=== PATIENT | female | born 1990 | race Caucasian/White ===

== ENCOUNTER 2020-02-06 20:20 | Observation (INO) ==
[2020-02-06 20:37] VITALS: BP 146/70
[2020-02-06] MEDS ORDERED: FLU Vac QV 20-21 (6Month+)/PF 0.5 ML SYRINGE IM ONE (20:38)
[2020-02-06 21:03] LABS: Basophils % 0.3 %; Eosinophils # 0.1 K/mcL (0.0-0.6); Eosinophils % 0.9 %; Hematocrit 38.1 % (35.3-44.9); Hemoglobin 13.2 g/dL (11.5-15.4); Immature Granulocytes % 0.5 % (0-4); Lymphocytes # 2.7 K/mcL (0.6-4.6); Lymphocytes % 26.6 %; Mean Corpuscular HGB Conc 34.6 g/dL (31.6-35.5); Mean Corpuscular Hemoglobin 30.8 pg (28.0-33.3); Mean Corpuscular Volume 88.8 fL (83.0-100.0); Mean Platelet Volume 10.2 fL (9.4-12.4); Monocytes # 0.6 K/mcL (0.0-1.3); Monocytes % 5.6 %; Neutrophils # 6.6 K/mcL (1.6-8.9); Platelet Count 257 K/mcL (140-400); Red Blood Count 4.29 M/mcL (3.82-4.97); Red Cell Distribution Width 12.5 % (11.5-14.5); Segmented Neutrophils % 66.1 %
[2020-02-06 21:08] LABS: Protein/Creatinine Ratio,Urine 0.12 mg/mg (0.00-0.20)
[2020-02-06 21:18] LABS: Alanine Aminotransferase 16 Units/L (7-52); Aspartate Amino Transferase 13 Units/L (13-39); BUN/Creatinine Ratio 15 (6-26); Blood Urea Nitrogen 8 mg/dL (6-20); Lactate Dehydrogenase 130 Units/L (140-271); Uric Acid 3.8 mg/dL (2.3-7.6); eGFR For African Americans > 60 (> 60); eGFR For Non-African Americans > 60 (> 60)
== END 2020-02-06 21:50 | disposition home or self-care (01) ==
LOC: 1NENULAB
PROVIDERS: ADMIT Obstetrics & Gynecology; ATTEND Obstetrics & Gynecology

== ENCOUNTER 2020-06-05 11:18 | Inpatient (IN) ==
[2020-06-05 13:01] LABS: Basophils % 0.4 %; Eosinophils % 0.5 %; Hematocrit 41.8 % (35.3-44.9); Hemoglobin 14.2 g/dL (11.5-15.4); Immature Granulocytes % 0.4 % (0-4); Lymphocytes # 1.7 K/mcL (0.6-4.6); Lymphocytes % 21.3 %; Mean Corpuscular Hemoglobin 29.5 pg (28.0-33.3); Mean Corpuscular Volume 86.7 fL (83.0-100.0); Monocytes # 0.4 K/mcL (0.0-1.3); Monocytes % 4.8 %; Neutrophils # 5.9 K/mcL (1.6-8.9); Platelet Count 221 K/mcL (140-400); Red Blood Count 4.82 M/mcL (3.82-4.97); Red Cell Distribution Width 13.5 % (11.5-14.5); Segmented Neutrophils % 72.6 %; White Blood Count 8.1 K/mcL (4.3-11.1)
[2020-06-05 13:02] LABS: Protein/Creatinine Ratio,Urine 0.3 mg/mg (0.00-0.20)
[2020-06-05] MEDS ORDERED: EPHEDrine 50 MG/ML VIAL IVP PRN (14:32)
[2020-06-05] MEDS ORDERED: Epidural Premix (fent/bupiv) 110 ML EP SCH (14:45)
[2020-06-05 15:09] LABS: Alanine Aminotransferase 43 Units/L (7-52); Aspartate Amino Transferase 22 Units/L (13-39); BUN/Creatinine Ratio 20 (6-26); Blood Urea Nitrogen 10 mg/dL (6-20); Lactate Dehydrogenase 133 Units/L (140-271); Uric Acid 3.7 mg/dL (2.3-7.6); eGFR For African Americans > 60 (> 60); eGFR For Non-African Americans > 60 (> 60)
[2020-06-05] MEDS ORDERED: Famotidine 20 MG/2 ML VIAL IVP PRN (15:29)
[2020-06-05] MEDS ORDERED: *HR* Nalbuphine 10 MG/ML AMPUL IV PRN (15:29)
[2020-06-05] MEDS ORDERED: Lidocaine 1% 20 ML MDV INFILT PRN (15:29)
[2020-06-05] MEDS ORDERED: Metoclopramide 10 MG/2 ML VIAL IVP PRN (15:29)
[2020-06-05] MEDS ORDERED: Azithromycin 500 MG in 0.9 % Sodium Chloride 250 ML IVPB ONE (15:29)
[2020-06-05] MEDS ORDERED: Ondansetron 4 MG/2 ML VIAL IVP PRN (15:29)
[2020-06-05] MEDS ORDERED: Ringers Solution, Lactated 1,000 ML IVC SCH (15:30)
[2020-06-05] MEDS: miSOPROStoL 25 MCG TABLET PO PRN ×2 (16:54→20:24)
[2020-06-05] MEDS ORDERED: Penicillin G Potassium 5,000,000 UNIT in 0.9 % Sodium Chloride Mini Bag 100 ML IVPB ONE (17:01)
[2020-06-05 17:04] LABS: Influenza A PCR Negative (Negative); Influenza B PCR Negative (Negative); Resp. Syncytial Virus PCR Negative (Negative)
[2020-06-05 17:07] LABS: SARS-CoV-2 by PCR (In House) Negative (Negative)
[2020-06-05 20:27] LABS: Amphetamine Screen,Urine Negative ng/mL (Cutoff=1000); Barbiturate Screen,Urine Negative ng/mL (Cutoff=200); Benzodiazepines Screen,Urine Negative ng/mL (Cutoff=200); Cannabinoid Screen,Urine Negative ng/mL (Cutoff = 50); Cocaine Screen,Urine Negative ng/mL (Cutoff= 300); Opiate Screen,Urine Negative ng/mL (Cutoff=300); Phencyclidine Screen,Urine Negative ng/mL (Cutoff=25)
[2020-06-05] MEDS: Penicillin G Potassium 2,500,000 UNIT/105 ML MLS IVPB SCH (21:59)
[2020-06-06] MEDS: Penicillin G Potassium 2,500,000 UNIT/105 ML MLS IVPB SCH ×4 (02:06→13:54)
[2020-06-06] MEDS ORDERED: miSOPROStoL 25 MCG TABLET PO SCH (05:30)
[2020-06-06] MEDS ORDERED: Oxytocin 20 units/ LR 1000 mL 20 UNIT/1,000 ML BAG IVC SCH ×2 (10:00→20:18)
[2020-06-06] MEDS ORDERED: Ropivacaine/PF 0.2% 20 ML VIAL EP ONE (10:50)
[2020-06-06] MEDS ORDERED: *HR* FentaNYL (PF) 100 MCG/2 ML VIAL EP ONE (10:50)
[2020-06-06] MEDS ORDERED: *HR* FentaNYL (PF) 100 MCG/2 ML VIAL ONE (10:56)
[2020-06-06] MEDS ORDERED: Ropivacaine/PF 0.2% 20 ML VIAL ONE (10:57)
[2020-06-06] MEDS ORDERED: Azithromycin 500 MG in 0.9 % Sodium Chloride 250 ML IVPB ONE (16:15)
[2020-06-06] MEDS ORDERED: CeFAZolin 2,000 MG/50 ML BAG IVPB ONE (16:23)
[2020-06-06] MEDS ORDERED: Lidocaine/EPI 1:200k 2% PF 20 ML VIAL ONE (16:24)
[2020-06-06] MEDS ORDERED: Dexamethasone 4 MG/ML VIAL ONE (16:25)
[2020-06-06] MEDS ORDERED: Acetaminophen IV 1,000 MG/100 ML BAG IVPB ONE (16:25)
[2020-06-06] MEDS ORDERED: Ondansetron 4 MG/2 ML VIAL ONE (16:25)
[2020-06-06] MEDS ORDERED: *HR* Morphine Sulfate/PF 10 MG/10 ML AMPUL ONE (16:25)
[2020-06-06] MEDS ORDERED: MetroNIDAZOLE 500 MG/100 ML 500 MG/100 ML BAG IVPB ONE (16:32)
[2020-06-06] MEDS ORDERED: Ringers Solution, Lactated 1,000 ML ONE (16:49)
[2020-06-06] MEDS ORDERED: Ondansetron 4 MG/2 ML VIAL IVP PRN ×2 (17:17→20:18)
[2020-06-06] MEDS ORDERED: *HR* OxyCODONE Immed Rel 5 MG TABLET PO PRN ×2 (17:17→20:18)
[2020-06-06] MEDS ORDERED: *HR* HYDROmorphone PF 0.5 MG/0.5 ML SYRINGE IVP PRN (17:17)
[2020-06-06] MEDS ORDERED: EPHEDrine 50 MG/ML VIAL ONE (17:39)
[2020-06-06] MEDS ORDERED: Sennosides 8.6 MG TABLET PO PRN (20:18)
[2020-06-06] MEDS ORDERED: Rho Immune Globulin 1,500 UNIT SYRINGE IM ONE (20:18)
[2020-06-06] MEDS ORDERED: Metoclopramide 10 MG/2 ML VIAL IVP PRN (20:18)
[2020-06-06] MEDS ORDERED: Measles/Mumps/Rubella Vacc 0.5 ML VIAL SQ ONE (20:18)
[2020-06-06] MEDS ORDERED: Simethicone 80 MG TAB.CHEW PO PRN (20:18)
[2020-06-06] MEDS ORDERED: *HR* Metformin 500 MG TABLET PO SCH (21:00)
[2020-06-06] MEDS: cephALEXin 500 MG CAPSULE PO SCH (21:56)
[2020-06-06] MEDS: metroNIDAZOLE 500 MG TABLET PO SCH (21:56)
[2020-06-06] MEDS: Ibuprofen 600 MG TABLET PO SCH (21:57)
[2020-06-07] MEDS: Acetaminophen 325 MG TABLET PO SCH ×4 (03:47→17:10)
[2020-06-07] MEDS: Ibuprofen 600 MG TABLET PO SCH ×3 (03:47→14:47)
[2020-06-07 04:35] LABS: Basophils % 0.2 %; Eosinophils % 0.1 %; Immature Granulocytes % 0.4 % (0-4); Lymphocytes % 8.1 %; Mean Corpuscular HGB Conc 34.5 g/dL (31.6-35.5); Mean Corpuscular Hemoglobin 30.7 pg (28.0-33.3); Mean Corpuscular Volume 88.9 fL (83.0-100.0); Mean Platelet Volume 10.5 fL (9.4-12.4); Monocytes # 0.8 K/mcL (0.0-1.3); Monocytes % 6.4 %; Neutrophils # 10.9 K/mcL (1.6-8.9); Platelet Count 166 K/mcL (140-400); Red Blood Count 3.71 M/mcL (3.82-4.97); Red Cell Distribution Width 13.2 % (11.5-14.5); Segmented Neutrophils % 84.8 %
[2020-06-07 04:37] LABS: Hemoglobin 11.4 g/dL (11.5-15.4); White Blood Count 12.9 K/mcL (4.3-11.1)
[2020-06-07 04:49] LABS: Protein/Creatinine Ratio,Urine 0.19 mg/mg (0.00-0.20)
[2020-06-07 05:01] LABS: Alanine Aminotransferase 40 Units/L (7-52); Aspartate Amino Transferase 24 Units/L (13-39); BUN/Creatinine Ratio 14 (6-26); Blood Urea Nitrogen 6 mg/dL (6-20); Glucose 103 mg/dL (70-105); Lactate Dehydrogenase 163 Units/L (140-271); Uric Acid 3.8 mg/dL (2.3-7.6); eGFR For African Americans > 60 (> 60); eGFR For Non-African Americans > 60 (> 60)
[2020-06-07] MEDS ORDERED: Prenatal Vit/FA 1 EACH TABLET PO SCH (09:00)
[2020-06-07] MEDS: cephALEXin 500 MG CAPSULE PO SCH ×2 (09:11→14:47)
[2020-06-07] MEDS: metroNIDAZOLE 500 MG TABLET PO SCH ×2 (09:11→14:47)
[2020-06-07 15:37] VITALS: BP 113/71
== END 2020-06-07 19:30 | disposition home or self-care (01) | DRG 788 ==
LOC: 1NENULAB → OBSVTOIN 11:18 → 1NENULAB 15:52 → 1NENUOBS 06-06 20:39
PROVIDERS: ADMIT Student in an Organized Health Care Education/Training Program; ATTEND Student in an Organized Health Care Education/Training Program